=== PATIENT | female | born 1990 | race Caucasian/White ===

== ENCOUNTER → 2020-08-08 10:27 | Outpatient (CLI) | payer OTHER, MEDICAID, SELFPAY ==
[2020-08-08 11:15] LABS: Add Manual Diff / Slide Review NO; Basophils Absolute Auto 0 /uL (0-100); Basophils Percent Auto 0.4 % (0-2); Eosinophils Absolute Auto 200 /uL (0-450); Eosinophils Percent Auto 1.8 % (2-4); Hemoglobin 12.5 g/dL (12.0-16.0); Lymphocytes Absolute Auto 2500 /uL (1100-4500); Lymphocytes Percent Auto 22.9 % (25-40); Mean Corpuscular HGB Conc 33.8 % (30-36); Mean Corpuscular Hemoglobin 28.8 PG (26-34); Mean Corpuscular Volume 85.2 fL (80-100); Monocytes Absolute Auto 500 /uL (0-900); Monocytes Percent Auto 4.2 % (3-14); Neutrophils Absolute Auto 7800 /uL (1500-7000); Neutrophils Percent Auto 70.7 % (50-75); Platelet Count 266 X10^3/uL (150-400); Red Blood Cell Count 4.35 X10^6/uL (4.0-5.2); Red Cell Distribution Width 13.7 % (11.6-14.8)
[2020-08-08 11:23] LABS: Hemoglobin A1C% w Est Avg Glu 5.3 % (4.0-6.0)
[2020-08-08 11:50] LABS: Glucose 92 mg/dL (70-100)
[2020-08-09 10:03] LABS: RPR Screen Non Reactive (Non Reactive)
[2020-08-09 11:14] LABS: Varicella IgG Antibody 2501 index (Immune >165)
[2020-08-09 19:37] LABS: Hepatitis B Surface Antigen NEGATIVE s/c (NEGATIVE); Rubella Antibody IgG 41.4 IU/mL (>15)
[2020-08-09 19:57] LABS: Hep C Virus Ab w/Reflex Quant NEGATIVE s/c (NEGATIVE)
[2020-08-10 16:59] LABS: HIV 1 & 2 Ab/Ag 4th Gen Combo NEGATIVE (NEGATIVE)
== END ==
PROVIDERS: PCP Specialist; Referring Provider Specialist; Visit Provider Specialist
DX: Z34.81 Encounter for supervision of other normal pregnancy, first trimester (principal)
CPT/HCPCS: 36415; 80055; 82947; 83036; 86787; 86803; 86850; 86900; 86901; 87389

== ENCOUNTER → 2020-11-12 12:35 | Outpatient (CLI) | payer OTHER, MEDICAID, SELFPAY ==
--- NOTE | 2020-11-12 12:36 | DI.US.S_ITS ---
PROCEDURE: US OB >= 14 WEEKS FETUS INDICATIONS: 20 week anatomy scan OUTSIDE/PRIOR DATING DATA: Last menstrual period (LMP): 06/11/2020. LMP-based estimated date of delivery (LISSETTE): 03/18/2021 . First dating scan (date and location): 08/08/2020 . Estimated date of delivery (LISSETTE) from first dating scan: 03/20/2021 . TECHNIQUE: Real-time scanning was performed of the fetus, with image documentation and biometric measurements. Endovaginal scanning: No COMPARISON: [facility], , OB <= 14 WEEKS FETUS, 08/08/2020, 10:04. FINDINGS: General: A single living intrauterine gestation is present. Presentation: Variable. Placenta: Placental position is anterior , without previa. Amniotic fluid index: 11.0 cm, normal range is 5-24 cm. heart rate: 139 beats per minute. Maternal cervical canal: 3.0 cm long. Normal lower limit is 2.5 cm. biometrics: Biparietal diameter: 22 weeks 5 days Head circumference: 22 weeks 1 day Abdominal circumference: 23 weeks Femur length: 23 weeks 2 days Estimated gestational age from initial scan: 21 weeks 5 days Composite gestational age from present scan: 22 weeks 6 days Estimated weight and percentile: 555 g; 96 percentile Measurement variability for biometric dating: +/- 7 days from 14 weeks to 15 weeks 6 days gestation, +/- 10 days from 16 weeks to 21 weeks 6 days gestation, +/- 2 weeks from 22 weeks to 27 weeks 6 days gestation, +/- 3 weeks for 28 weeks gestation or later. weight reference: 4500 g or EFW >90/95% is considered macrosomia or large for gestational age. EFW <10% is small for gestational age. EFW 5% or less is considered intra-uterine growth restriction. Anatomic survey: Neuro: Ventricles are non-dilated at less than 10 mm. Cisterna magna is normal at 3-11 mm. Cerebellum is normal in size and morphology. Nuchal skin fold: Normal at less than 6 mm between 14-21 weeks gestational age. Face: Nose and lips, facial profile are normal. Spine: Suboptimally visualized. Heart: 4-chambered heart is present, with normal ventricular outflow tracts. Diaphragm: Diaphragm is intact. Stomach: Left-sided stomach is present. Kidneys: No hydronephrosis. Normal is less than 5 mm in 2nd trimester, less than 7 mm in 3rd trimester. Cord: 3-vessel cord has orthotopic insertion. Bladder: Normal in size. Extremities: All 4 extremities identified. IMPRESSION: 1. Single living IUP redemonstrated and interval growth is greater than expected with estimated weight 96 percentile. Follow-up growth recommended to exclude early developing macrosomia. 2. Spine suboptimally visualized; otherwise anatomic survey is normal. Follow-up recommended. Dictated by: Evan Cook [facility] Interpreted: Charly Francis MD on 11/12/2020 at 14:36 Approved by: Charly Francis M.D. on 11/13/2020 at 8:03
== END ==
PROVIDERS: PCP Specialist; Referring Provider Specialist; Visit Provider Specialist
DX: Z34.82 Encounter for supervision of other normal pregnancy, second trimester (principal); Z3A.22 22 weeks gestation of pregnancy
CPT/HCPCS: 76811

== ENCOUNTER → 2020-11-29 10:30 | Outpatient (CLI) | payer OTHER, MEDICAID, SELFPAY ==
--- NOTE | 2020-11-29 | DI.US.S_ITS ---
PROCEDURE: US OB FOLLOW UP INDICATIONS: FOLLOW UP GROWTH/SPINE OUTSIDE/PRIOR DATING DATA: Last menstrual period (LMP): 06/11/20. LMP-based estimated date of delivery (LISSETTE): 03/18/21 . First dating scan (date and location): 08/08/20 . Estimated date of delivery (LISSETTE) from first dating scan: 03/20/21 . TECHNIQUE: Real-time scanning was performed of the fetus, with image documentation. Endovaginal scanning: Not performed COMPARISON: [facility], OB >= 14 WEEKS FETUS, 11/12/2020, 12:46. [facility], OB <= 14 WEEKS FETUS, 08/08/2020, 10:04. FINDINGS: A single living intrauterine gestation is present. Presentation: Transverse. Placenta: Placental position is anterior , without previa. Amniotic fluid index: 14.7 cm, normal range is 5-24 cm. heart rate: 145 beats per minute. Maternal cervical canal: 3.9 cm long. Normal lower limit is 2.5 cm. Biparietal diameter 6.2 cm, 25 weeks 1 day Head circumference 27.2 cm, 24 weeks 6 days Abdominal circumference 20.9 cm, 25 weeks 3 days Femur length 4.9 cm, 26 weeks 3 days Estimated gestational age by initial ultrasound: 24 weeks 2 days Composite gestational age by today's ultrasound measurements: 25 weeks 3 days Estimated weight 847 g, 95th percentile (previously 96th percentile) IMPRESSION: Single living intrauterine fetus in transverse presentation. Estimated weight 847 g, 95th percentile (previously 96th percentile) as above. Dictated by: Sean Ramos M.D. on 11/30/2020 at 12:37 Approved by: Sean Ramos M.D. on 11/30/2020 at 12:43
== END ==
PROVIDERS: PCP Specialist; Referring Provider Specialist; Visit Provider Specialist
DX: Z36.2 Encounter for other antenatal screening follow-up (principal); Z3A.25 25 weeks gestation of pregnancy
CPT/HCPCS: 76816

== ENCOUNTER → 2021-01-03 10:46 | Outpatient (CLI) | payer OTHER, MEDICAID, SELFPAY ==
[2021-01-03 12:33] LABS: Hematocrit 35.6 % (36-46); Hemoglobin 11.8 g/dL (12.0-16.0)
[2021-01-03 12:34] LABS: Appearance Urine UA SL CLOUDY; Bilirubin Urine UA NEGATIVE (NEGATIVE); Color Urine UA YELLOW; Glucose Urine UA NEGATIVE (Negative); Ketones Urine UA 1+ (NEGATIVE); Leukocyte Esterase Urine UA TRACE (NEGATIVE); Nitrite Urine UA NEGATIVE (Negative); Occult Blood Urine UA TRACE-LYSED (Negative); Protein Urine UA TRACE (Negative); Urobilinogen Urine UA 0.2 E.U./dL (0.2)
[2021-01-03 12:44] LABS: Amorphous Sediment Urine 1+; Bacteria Urine Many (>30); Mucus Urine 2+ (Negative); RBC Urine 1-5/HPF (0-5/HPF); Squamous Epithelial Cell Urine 5-10 /HPF (0-5/HPF); WBC Urine 5-10/HPF (0-5/HPF)
[2021-01-03 13:16] LABS: GTT (PREG) 1 Hour PP 50gm Dose 147 mg/dL (76-139)
== END ==
PROVIDERS: PCP Specialist; Referring Provider Specialist; Visit Provider Specialist
DX: Z34.82 Encounter for supervision of other normal pregnancy, second trimester (principal)
CPT/HCPCS: 36415; 81003; 81015; 82950; 85014; 85018; 87086

== ENCOUNTER → 2021-02-19 14:37 | Outpatient (CLI) | payer OTHER, MEDICAID, SELFPAY ==
[2021-02-22 11:34] LABS: Strep Grp B PCR NEG for Grp B Strep
== END ==
PROVIDERS: PCP Specialist; Visit Provider Specialist
DX: Z34.83 Encounter for supervision of other normal pregnancy, third trimester (principal); Z3A.36 36 weeks gestation of pregnancy
CPT/HCPCS: 87653

== ENCOUNTER → 2021-03-01 13:31 | Outpatient (CLI) | payer OTHER, MEDICAID, SELFPAY ==
[2021-03-01 15:32] LABS: Add Manual Diff / Slide Review NO; Basophils Absolute Auto 100 /uL (0-100); Basophils Percent Auto 0.8 % (0-2); Eosinophils Absolute Auto 200 /uL (0-450); Eosinophils Percent Auto 1.4 % (2-4); Hematocrit 36.5 % (36-46); Hemoglobin 12.3 g/dL (12.0-16.0); Lymphocytes Absolute Auto 2500 /uL (1100-4500); Lymphocytes Percent Auto 23.1 % (25-40); Mean Corpuscular HGB Conc 33.6 % (30-36); Mean Corpuscular Hemoglobin 28.5 PG (26-34); Mean Corpuscular Volume 84.7 fL (80-100); Monocytes Absolute Auto 300 /uL (0-900); Monocytes Percent Auto 2.5 % (3-14); Neutrophils Absolute Auto 7900 /uL (1500-7000); Neutrophils Percent Auto 72.2 % (50-75); Platelet Count 180 X10^3/uL (150-400); Red Blood Cell Count 4.31 X10^6/uL (4.0-5.2); Red Cell Distribution Width 15.1 % (11.6-14.8); White Blood Cell Count 10.9 X10^3/uL (4.5-11.0)
[2021-03-01 15:35] LABS: Hemoglobin A1C% w Est Avg Glu 5.1 % (4.0-6.0)
[2021-03-01 15:43] LABS: Alanine Aminotransferase 18 IU/L (<35); Aspartate Aminotransferase 23 IU/L (14-36); Blood Urea Nitrogen 9 mg/dL (7-17); Estimated Glomerular Filt Rate > 60.0 mL/min (>60); Glucose 128 mg/dL (70-100); Uric Acid 3.3 mg/dL (2.5-6.2)
== END ==
PROVIDERS: PCP Specialist; Referring Provider Specialist; Visit Provider Specialist
DX: O16.3 Unspecified maternal hypertension, third trimester (principal); R73.09 Other abnormal glucose
CPT/HCPCS: 36415; 82565; 82947; 83036; 84450; 84460; 84520; 84550; 85025

== ENCOUNTER 2021-03-14 05:59 | Inpatient (IN) | payer OTHER, MEDICAID, SELFPAY ==
[2021-03-14 06:54] LABS: Basophils Absolute Auto 100 /uL (0-100); Basophils Percent Auto 1.2 % (0-2); Eosinophils Absolute Auto 400 /uL (0-450); Eosinophils Percent Auto 3.7 % (2-4); Hematocrit 36.9 % (36-46); Hemoglobin 12.7 g/dL (12.0-16.0); Lymphocytes Absolute Auto 3300 /uL (1100-4500); Lymphocytes Percent Auto 28.3 % (25-40); Mean Corpuscular HGB Conc 34.5 % (30-36); Mean Corpuscular Hemoglobin 29.3 PG (26-34); Mean Corpuscular Volume 84.9 fL (80-100); Monocytes Absolute Auto 600 /uL (0-900); Monocytes Percent Auto 5.3 % (3-14); Neutrophils Absolute Auto 7300 /uL (1500-7000); Neutrophils Percent Auto 61.5 % (50-75); Red Blood Cell Count 4.34 X10^6/uL (4.0-5.2); White Blood Cell Count 11.8 X10^3/uL (4.5-11.0)
[2021-03-14 06:55] LABS: COVID19 - ADMIT (NP swab/PCR) Negative (Negative)
[2021-03-14 06:56] LABS: Add Manual Diff / Slide Review SLIDE REVIEW
[2021-03-14] MEDS: LACTATED RINGERS 1,000 ML 100 ML IV ×2 (07:00→08:47)
--- NOTE | 2021-03-14 07:09 | SUR.OPER ---
Supine on Padded OR bed, head on pillow, safety belt at thigh, arms secured on padded arm boards at <90 degrees abduction. Bump under right buttock. Legs uncrossed with pillow under knees, gel pad to heels, tape over blanket to lower legs.
--- NOTE | 2021-03-14 07:21 | P.HPOB_ITS ---
OB HPI Date/Time Date of admission: 03/14/21 Date Patient Seen: 03/14/21 Time Patient Seen: 07:21 History of Present Condition Chief complaint: REPEAT : 2 Para: 1 Estimated Date of Delivery: 03/18/21 Estimated Gestational Age (weeks): 39 Narrative: Lesa Quintero is a 30 year old female admitted for repeat low-transverse section Indications Operative indications ( section): previous uterine surgery (Prior neha arean section) History of Present care: initiated at week # (8), number of visits (9) and pounds weight gain (10) Dating criteria: LMP confirmed by 1st trimester US Ultrasounds: normal mid trimester US Obstetrical complications: gestational diabetes (Elevated 1 hour glucose patient never did 3 hour glucose tolerance test, HgA1C 5.4 37 week) Medical complications: cardiovascular (Hypertension possibly white coat) Preadmission Labs Blood type: O (+) positive -: Antibody screen: negative, GBS status: negative, HBsAG: negative, HIV: negative and RPR/VDLR: negative -: Chlamydia screen: not detected and Gonorrhea screen: not detected -: Rubella: immune and Varicella: immune HCAB: negative Quad screen: Normal 1 hr GTT: 147 Narrative: Patient never did 3 hour glucose tolerance test. Random glucoses less than 130. Hemoglobin A1c 5.4 at 37 week Prior (ies) History: 03/12/2017 section for failure to progress 39 weeks female weighing 8# Evaluation Evaluation Baseline heart rate: 140 Variability: Moderate (11-25) monitor accelerations: Present Monitor Decelerations: Absent Contraction Frequency (minutes): 0 Category of Tracing: Reactive Status: Category l Laboratory results: Laboratory Tests 03/14/21 03/14/21 06:15 06:15 WBC 11.8 H RBC 4.34 Hgb 12.7 Hct 36.9 MCV 84.9 MCH 29.3 MCHC 34.5 RDW 15.0 H Plt Count 175 Neut % (Auto) 61.5 Lymph % (Auto) 28.3 [place] % (Auto) 5.3 Eos % (Auto) 3.7 Baso % (Auto) 1.2 Neut # (Auto) 7300 H Lymph # (Auto) 3300 [place] # (Auto) 600 Eos # (Auto) 400 Baso # (Auto) 100 SARS-CoV-2 (PCR) Negative PFSH Medical History (Updated 03/05/21 @ 13:29 by Marry Reilly MD) Anxiety and depression Elevated blood pressure reading in office with white coat syndrome, with diagnosis of hypertension Gestational diabetes (~2016) PTSD (post-traumatic stress disorder) Surgical History (Updated 07/31/20 @ 10:51 by Maia Jean, STEPHANIE) H/O oral surgery (~2014) Status post primary low transverse section (~02/2017) Family History (Updated 07/31/20 @ 10:50 by Maia Jean, STEPHANIE) Mother Diabetes mellitus Depression Anxiety Father Mental health disorder Suicide Grandmother Cancer Grandfather Old age Grandmother Cancer Lung cancer Smoker Grandfather Diabetes mellitus Sister Depression Anxiety Social History marital status: number of children: 1 household members: spouse, children and other (Family compound with Sister on the same property) lives independently: Yes pets and animals: Yes (X 4 dogs and X 1 cat indoor plus 20 turkey's on the farm : aware) occupational status: unemployed current occupational exposures/hazards: No special silvina needs: No Smoking Status: Never smoker second hand exposure: No alcohol intake: former (pre- : rare use) substance use type: marijuana (smoking less now and aware it is not good : uses to manage nausea and vomiting) Meds Home Medications and Allergies Home Medications Medication Instructions Recorded Confirmed Type prenat.vits,quan,jsr-qopl-iadlf 1 tab PO DAILY 07/31/20 02/20/21 History sertraline 50 mg tablet 50 mg PO DAILY #30 tab 12/21/20 02/20/21 Rx labetalol 100 mg tablet 100 mg PO BID #30 tab 03/05/21 03/05/21 Rx Allergies Allergy/AdvReac Type Severity Reaction Status Date / Time No Known Drug Allergies Allergy Unknown Unverified 02/20/21 14:02 [NO KNOWN DRUG ALLERGIES] Review of Systems Review of Systems Narrative: No headaches, scotomata, epigastric pain. Good movement. No leakage of fluid. No contractions. ROS: Yes All systems reviewed with the patient and are negative except as ot herwise documented Exam Vital Signs (past 8 hours): Blood pressure 172/88, pulse 68, temperature 96.9? Narrative Exam Narrative: HEENT exam within normal limits. Lungs are clear to auscultation percussion. Heart is regular rate and rhythm no S3-S4 or murmurs. Abdomen is gravid. Fetus is vertex. Extremities without edema and nontender. Objective Labs Result Diagrams: 03/14/21 06:15 Labs: Laboratory Results - last 24 hr 03/14/21 03/14/21 06:15 06:15 WBC 11.8 H RBC 4.34 Hgb 12.7 Hct 36.9 MCV 84.9 MCH 29.3 MCHC 34.5 RDW 15.0 H Plt Count 175 Neut % (Auto) 61.5 Lymph % (Auto) 28.3 [place] % (Auto) 5.3 Eos % (Auto) 3.7 Baso % (Auto) 1.2 Neut # (Auto) 7300 H Lymph # (Auto) 3300 [place] # (Auto) 600 Eos # (Auto) 400 Baso # (Auto) 100 SARS-CoV-2 (PCR) Negative Assessment and Plan Assessment and Plan Assessment and Plan narrative: 39 week gestation with prior section for repeat low-transverse section
--- NOTE | 2021-03-14 07:21 | PM.PREOP ---
Pre-operative Note COVID-19 COVID-19 status: Negative Result date/Date tested (Pos, Neg/Pending): 03/14/21 Interval Note History & Physical reviewed/Exam performed by Physician: Yes Changes to H&P: No
[2021-03-14] MEDS: CITRIC ACID/SODIUM CITRATE 15 ML SOLUTION 30 ML PO (07:30)
[2021-03-14 07:43] LABS: Platelet Count 175 X10^3/uL (150-400)
[2021-03-14] MEDS: CEFAZOLIN 1 GM VIAL 2 GM IV (08:10)
--- NOTE | 2021-03-14 08:29 | SUR.OPER ---
Viable male delivered at 08:20. Cord blood vials x2 and placenta sent with L&D RN.
[2021-03-14 09:09] VITALS: BP 169/78; PULSE 66; RESP 16; TEMP 36; O2SAT 97
[2021-03-14 09:14] VITALS: BP 182/84; PULSE 64; RESP 14; O2SAT 100
--- NOTE | 2021-03-14 09:17 | P.OP_ITS ---
Operative Date/Time/Diagnoses Date of procedure: 03/14/21 Time of procedure: 09:17 Pre-op diagnosis: 39 week gestation with prior section Post-op diagnosis: same Procedure & Clinicians Procedure: Repeat low-transverse section Same procedure as scheduled: Yes Indications: 39 week gestation with prior section Surgeon: Jackie Kaplan Silviculturist: Marry Reilly Reason for Silviculturist: Assist in retraction, left side of incisions, fundal pressure deliver the baby Anesthesia Type: Spinal Operative Notes Findings: Normal tubes, ovaries, uterus. Viable male infant weighing 7 lb 6 oz with Apgars of 8 and 9 Closure Type: primary Specimen(s): cord blood Intraoperative meds administered: Duramorph, Ketorolac and Pitocin Applied: Catheter (Dey) Estimated Blood Loss (mL): 500 Blood products transfused: none Procedure in detail: The patient was brought to the operating room where she underwent a spinal for anesthesia. She was placed in a supine position with a left lateral tilt. A Dey catheter was place. Pulsatile stockings were placed and functional throughout the case. 2 g of Ancef were given IV prior to the incision. Warming was in place. The patient was prepped and draped in usual sterile fashion. A low transverse incision was made with a scalpel and the incision was carried down to the fascial layer which was incised transversely with scissors. The certified teacher assistant did her side of the incision. The midline attachments are superiorly and inferiorly. Some bleeding was controlled Bovie. The rectus muscles were in the midline and the peritoneal incision was made with no damage to internal structures. The peritoneum was incised and superiorly and inferiorly. The incision was stretched with the surgeon and certified teacher assistant placing traction. Bladder blade was placed and a bladder flap was developed and the bladder held away from the lower uterine segment. An incision was made in the uterus with the scalpel and the incision was extended with stretching. The head was elevated out of the abdomen and with fundal pressure by the certified teacher assistant the baby was delivered. The was bulb suctioned for light meconium-stained fluid and handed off to the warmer. Cord blood was collected. The placenta delivered spontaneously with traction. The uterus was cleaned with clean laps. The uterine incision was closed in 2 layers of 0 chromic suture the first a running locking layer the second an imbricating layer. The certified teacher assistant was helping to expose the incision. The bladder peritoneum was repaired with 2-0 Vicryl suture. The gutters were cleaned of any remaining fluids and ovaries and tubes were observed to be normal. Adequate hemostasis was noted. The perineum was closed with 2-0 Vicryl suture. The fascia layer was closed with 0 Vicryl suture with 2 stitches. The certified teacher assistant repairing half the incision with helping to retract and expose the incision for the other half. The incision was irrigated and adequate hemostasis noted. The incision was closed with interrupted 3-0 Vicryl sutures and then a subcuticular stitch of 4-0 Vicryl suture. Steri-Strips were placed. The uterus was massaged to remove any clots. The patient went to recovery room in good condition. Counts of instruments and sponges were correct. Dr. Reilly was present throughout the case to assist with retraction, fundal pressure to deliver the , and suturing half the fascia. Complications: none Post-operative Condition: stable Disposition: other ( Center) Aftercare: routine postop
[2021-03-14 09:19] VITALS: BP 179/85; PULSE 62; RESP 12; TEMP 36.2; O2SAT 97
[2021-03-14 09:24] VITALS: BP 176/78; PULSE 65; RESP 16; TEMP 36.1; O2SAT 98
[2021-03-14 10:12] VITALS: BP 101/62; PULSE 71; RESP 16; TEMP 36.1
[2021-03-14] MEDS: KETOROLAC 30 MG/ML VIAL IV ×2 (15:50→22:06)
[2021-03-14] MEDS: OXYCODONE IR 5 MG TABLET PO ×2 (15:51→21:20)
[2021-03-15] MEDS: OXYCODONE IR 5 MG TABLET PO ×4 (01:20→15:00)
[2021-03-15] MEDS: KETOROLAC 30 MG/ML VIAL IV (04:03)
[2021-03-15 06:30] LABS: Add Manual Diff / Slide Review NO; Basophils Absolute Auto 100 /uL (0-100); Basophils Percent Auto 0.6 % (0-2); Eosinophils Absolute Auto 100 /uL (0-450); Eosinophils Percent Auto 1.1 % (2-4); Hematocrit 32.7 % (36-46); Lymphocytes Absolute Auto 2400 /uL (1100-4500); Lymphocytes Percent Auto 19.3 % (25-40); Mean Corpuscular HGB Conc 33.6 % (30-36); Mean Corpuscular Hemoglobin 28.5 PG (26-34); Mean Corpuscular Volume 84.9 fL (80-100); Monocytes Absolute Auto 600 /uL (0-900); Monocytes Percent Auto 4.6 % (3-14); Neutrophils Absolute Auto 9300 /uL (1500-7000); Neutrophils Percent Auto 74.4 % (50-75); Platelet Count 145 X10^3/uL (150-400); Red Blood Cell Count 3.85 X10^6/uL (4.0-5.2); Red Cell Distribution Width 15.3 % (11.6-14.8); White Blood Cell Count 12.6 X10^3/uL (4.5-11.0)
[2021-03-15] MEDS: SERTRALINE 50 MG TABLET PO (08:50)
[2021-03-15] MEDS: DOCUSATE 250 MG CAPSULE PO (08:50)
[2021-03-15] MEDS: IBUPROFEN 600 MG TABLET PO (10:59)
--- NOTE | 2021-03-15 11:49 | PM.OBDS.1 ---
Discharge Providers Provider Date of admission: 03/14/21 05:59 Discharge Date: 03/15/21 Primary care physician: Radha Vazquez MD Consults: 03/14/21 10:12 Consult to Bakery Machine Mechanic Routine Comment: Discharge provider: Jackie Kaplan MD Summary Hospital Course Date Patient Seen: 03/15/21 Time Patient Seen: 10:30 Diagnoses: Prior section, gestational hypertension complicating chronic hypertension, anxiety and depression Hospital Course: Patient underwent a repeat low-transverse section at 39 weeks. Patient has no headaches, scotomata, epigastric pain. She will be restarted on her labetalol for her hypertension. She will continue on sertraline for her anxiety and depression. Precautions reviewed with the patient. Patient is ambulatory. Urinating well. Passing gas. Peripartum Data Delivery Method: Section (Repeat) Procedures: Repeat low-transverse section complications: none 1: Gender: Male Disposition of : home Discharge Diagnosis (1) Status post repeat low transverse section: Status: Acute (2) Gestational hypertension: Status: Acute (3) Anxiety and depression: Status: Acute Problem Details: Since childhood due to witnessing trauma : tried therapy and meds when younger and was traumatic in and of itself Status at Discharge Cognitive/behavioral status at discharge: oriented Functional status at discharge: independent ambulation Overall status at discharge: patient is progressing back to baseline Time Spent with Patient Time attestation: Total time spent providing and/or coordinating discharge services: Objective Labs Result Diagrams: 03/15/21 06:19 Labs: Laboratory Results - last 24 hr 03/15/21 06:19 WBC 12.6 H RBC 3.85 L Hgb 11.0 L Hct 32.7 L MCV 84.9 MCH 28.5 MCHC 33.6 RDW 15.3 H Plt Count 145 L Neut % (Auto) 74.4 Lymph % (Auto) 19.3 L [place] % (Auto) 4.6 Eos % (Auto) 1.1 L Baso % (Auto) 0.6 Neut # (Auto) 9300 H Lymph # (Auto) 2400 [place] # (Auto) 600 Eos # (Auto) 100 Baso # (Auto) 100 Exam Vital Signs (past 8 hours): Blood pressure 155/88, pulse 71, temperature 98.1? Oxygen Delivery Method Room Air Oxygen Flow Rate 0 Narrative Exam Narrative: Abdomen is soft, nontender. Uterus is firm, at U, minimally tender. Dressing is clean, dry, intact. Extremities without edema and nontender. Mild lochia. Blood type is Rh positive, rubella immune, she received Tdap in the 3rd trimester. Discharge Plan Discharge Plan Patient Disposition: Home Discharge orders & Medications Prescriptions: New ibuprofen 600 mg Tablet 600 mg PO Q6H PRN (Reason: Fever/Mild Pain (1-3)) Qty: 30 RF: 0 oxycodone 5 mg Tablet 5 mg PO Q4H PRN (Reason: Pain, Moderate (4-6)) Qty: 30 RF: 0 Continued sertraline 50 mg tablet 50 mg PO DAILY Qty: 30 RF: 5 labetalol 100 mg tablet 100 mg PO BID Qty: 30 RF: 2 prenat.vits,quan,xpy-dqip-nsidm Tablet 1 tab PO DAILY RF: 0 Follow up/Referrals: Jackie Kaplan MD [Physician] - 04/17/21 2:00 pm ([facility]) Radha Vazquez MD [Primary Care Provider] - Diet/Activity/Treatments Diet: Regular Activity: Nothing in vagina or lifting over 20 lb for 6 weeks Skin/Wound/Dressing Care Report to your healthcare provider any signs of infection, such as:: chills, fever, increased pain and unusual redness Dressing: Patient's will remove dressing in 1 week Discharge Data Primary Care Provider: Radha Vazquez
[2021-03-15 14:21] VITALS: BP 144/90; PULSE 76; RESP 16; TEMP 36.6
[2021-03-15] MEDS: ACETAMINOPHEN 325 MG TABLET 650 MG PO (15:00)
== END 2021-03-15 15:05 | disposition home or self-care (01) | DRG 540 ==
PROVIDERS: Admitting Provider Specialist; PCP Specialist; Referring Provider Specialist; Visit Provider Specialist
PROC: 10D00Z1 Extraction of Products of Conception, Low, Open Approach (ICD-10-PCS; CPT 59514; principal; 2021-03-14 07:45)
DX: O34.219 Maternal care for unspecified type scar from previous cesarean delivery (principal); Z3A.39 39 weeks gestation of pregnancy; Z37.0 Single live birth; O13.4 Gestational [pregnancy-induced] hypertension without significant proteinuria, complicating childbirth; O99.344 Other mental disorders complicating childbirth; F41.8 Other specified anxiety disorders; F43.10 Post-traumatic stress disorder, unspecified; Z20.822 Contact with and (suspected) exposure to COVID-19
CPT/HCPCS: 36415; 59050; 59514; 85025; 86850; 86900; 86901; 87635; C9803; J0690; J1885; J2274; J2405; J2590

== ENCOUNTER → 2024-11-15 09:50 | Outpatient (CLI) | payer OTHER, SELFPAY ==
[2024-11-15 10:23] LABS: Add Manual Diff / Slide Review NO; Basophils Absolute Auto 100 /uL (0-100); Basophils Percent Auto 0.5 % (0-2); Eosinophils Absolute Auto 200 /uL (0-450); Eosinophils Percent Auto 1.6 % (2-4); Hematocrit 38.5 % (36-46); Hemoglobin 13.1 g/dL (12.0-16.0); Lymphocytes Absolute Auto 2100 /uL (1100-4500); Lymphocytes Percent Auto 19.3 % (25-40); Mean Corpuscular HGB Conc 33.9 % (30-36); Mean Corpuscular Hemoglobin 28.1 PG (26-34); Monocytes Absolute Auto 400 /uL (0-900); Monocytes Percent Auto 3.9 % (3-14); Neutrophils Absolute Auto 7900 /uL (1500-7000); Neutrophils Percent Auto 74.7 % (50-75); Platelet Count 285 X10^3/uL (150-400); Red Blood Cell Count 4.64 X10^6/uL (4.0-5.2); Red Cell Distribution Width 13.9 % (11.6-14.8); White Blood Cell Count 10.6 X10^3/uL (4.5-11.0)
[2024-11-15 10:39] LABS: Hemoglobin A1C% w Est Avg Glu 5.1 % (4.0-6.0)
[2024-11-15 10:41] LABS: Alanine Aminotransferase 24 IU/L (<35); Aspartate Aminotransferase 23 IU/L (14-36); Blood Urea Nitrogen 10 mg/dL (7-17); Estimated Glomerular Filt Rate > 60 mL/min (>60); Uric Acid 3.7 mg/dL (2.5-6.2)
[2024-11-15 11:15] LABS: Hepatitis B Surface Antigen NEGATIVE s/c (NEGATIVE)
[2024-11-15 11:16] LABS: Rubella Antibody IgG 45.3 IU/mL (>15)
[2024-11-15 11:37] LABS: HIV 1 & 2 Ab/Ag 4th Gen Combo NEGATIVE (NEGATIVE); Hep C Virus Ab w/Reflex Quant NEGATIVE s/c (NEGATIVE)
[2024-11-16 04:08] LABS: RPR Screen Non Reactive (Non Reactive)
[2024-11-16 05:41] LABS: Varicella IgG Antibody Reactive (Non Reactive)
== END ==
PROVIDERS: PCP Specialist; Referring Provider Student in an Organized Health Care Education/Training Program; Visit Provider Student in an Organized Health Care Education/Training Program
DX: O09.299 Supervision of pregnancy with other poor reproductive or obstetric history, unspecified trimester (principal); Z86.32 Personal history of gestational diabetes; Z87.59 Personal history of other complications of pregnancy, childbirth and the puerperium
CPT/HCPCS: 36415; 80055; 82565; 83036; 84450; 84460; 84520; 84550; 86787; 86803; 86850; 86900; 86901; 87389

== ENCOUNTER → 2024-12-19 11:08 | Outpatient (CLI) | payer OTHER, SELFPAY ==
[2024-12-19 14:49] LABS: Urine N gonorrhoeae NOT DETECTED
[2024-12-19 15:23] LABS: Urine Chlamydia NOT DETECTED
== END ==
PROVIDERS: PCP Specialist; Visit Provider Student in an Organized Health Care Education/Training Program
DX: O09.299 Supervision of pregnancy with other poor reproductive or obstetric history, unspecified trimester (principal); Z86.32 Personal history of gestational diabetes; Z87.59 Personal history of other complications of pregnancy, childbirth and the puerperium; Z11.3 Encounter for screening for infections with a predominantly sexual mode of transmission
CPT/HCPCS: 87086; 87491; 87591

== ENCOUNTER → 2024-12-19 11:45 | Outpatient (CLI) | payer OTHER, SELFPAY ==
[2024-12-19 13:21] LABS: Natera Collection Specimen Collected
== END ==
PROVIDERS: PCP Specialist; Referring Provider Student in an Organized Health Care Education/Training Program; Visit Provider Student in an Organized Health Care Education/Training Program
DX: O09.291 Supervision of pregnancy with other poor reproductive or obstetric history, first trimester (principal); Z86.32 Personal history of gestational diabetes; Z87.59 Personal history of other complications of pregnancy, childbirth and the puerperium; Z11.3 Encounter for screening for infections with a predominantly sexual mode of transmission; Z3A.11 11 weeks gestation of pregnancy
CPT/HCPCS: 36415; 87086; 87491; 87591

== ENCOUNTER → 2025-01-25 14:00 | Outpatient (CLI) | payer OTHER, SELFPAY ==
--- NOTE | 2025-01-25 14:01 | DI.ECHO.S_ITS ---
[facility] : : [address] : : [place] : : [id number] : : Phone: [phone] Echocardiogram Report + + :Name: SUSANNE TURNER Study Date: 01/25/2025 Height: 65 in : :[facility] ReadingLocation: Weight: 203 lb : : Gender: Female BSA: 2.0 m2 : :: 1990 Age: 34 yrs BP: 133/91 mmHg: :Reason For Study: SHORTNESS OF BREATH, : :Ordering Physician: RIMMA BROOKS : :A Performed By: Lewis Montes : :Referring: UNSPECIFIED : + + Interpretation Summary PT is 17 weeks The left ventricle is normal in size. The left ventricular ejection fraction is normal. The ejection fraction is estimated to be 60-65%. Diastolic parameters suggest probable normal left ventricular diastolic function and normal filling pressures. The right ventricle is normal in size and function. There is trace tricuspid regurgitation. Right ventricular systolic pressure is estimated to be 39.7 mmHg plus the clinically estimated CVP which cannot be estimated on this exam. At least mild pulmonary hypertension. BP: 133/91 mmHg Procedure: A two-dimensional transthoracic echocardiogram with color flow and Doppler was performed. The study quality was technically good. There is no prior echocardiogram noted for this patient. The patient was in normal sinus rhythm during the exam. Left Ventricle: The left ventricle is normal in size. There is normal left ventricular wall thickness. There is no thrombus. The ejection fraction is estimated to be 60-65%. The left ventricular ejection fraction is normal. There are no obvious focal wall motion abnormalities noted but poor endocardial definition reduces the sensitivity for the detection of such. Diastolic parameters suggest probable normal left ventricular diastolic function and normal filling pressures. Right Ventricle: The right ventricle is normal in size and function. Atria: The left atrial size is normal. Right atrial size is normal. There is no Doppler evidence for an atrial septal defect. Mitral Valve: The mitral valve leaflets appear normal. There is no evidence of stenosis, fluttering, or prolapse. There is no mitral regurgitation noted. Aortic Valve: The aortic valve is not well visualized. The aortic valve opens well. There is no aortic valve stenosis. No aortic regurgitation is present. Tricuspid Valve: The tricuspid valve leaflets are thin and pliable. There is trace tricuspid regurgitation. Right ventricular systolic pressure is estimated to be 39.7 mmHg plus the clinically estimated CVP which cannot be estimated on this exam. Pulmonic Valve: The pulmonic valve is not well visualized. There is no pulmonic valvular regurgitation. Great Vessels: The aortic root is normal size. The dimensions of the ascending aorta are normal. The pulmonary artery is normal size. The inferior vena cava was not visualized. Pericardium/ Pleura There is no pericardial effusion. There is no pleural effusion. MMode/2D Measurements & Calculations LVIDd: 5.5 cm LVOT diam: 2.0 cm LVIDs: 3.7 cm Ao root diam: 2.6 cm FS: 32.3 % EPSS: 0.88 cm IVSd: 0.64 cm LVPWd: 0.68 cm LV bran. diameter/BSA (cm/m^2): 2.7 LV sys. diameter/BSA (cm/m^2): 1.9 LA A2 area: 18.6 cm2 RA long axis: 4.3 cm LA A4 area: 19.4 cm2 RA area: 14.0 cm2 LA length (vol): 5.3 cm RA vol: 38.8 ml LA vol: 57.7 ml RA : 19.5 ml/m2 LA vol index: 29.0 ml/m2 RVD1 (basal): 3.2 cm RVD2 (mid): 2.5 cm TAPSE: 3.6 cm Doppler Measurements & Calculations Ao V2 max: 192.9 cm/sec LVOT Max Rob: 135.3 cm/sec Ao V2 mean: 137.2 cm/sec LV V1 max P.3 mmHg Ao max P.9 mmHg LV V1 VTI: 25.9 cm Ao mean P.4 mmHg MINDA(I,D): 2.0 cm2 Ao V2 VTI: 39.7 cm MINDA(V,D): 2.2 cm2 sev ratio: 0.65 MINDA indexed to BSA (cm^2/m^2): 1.0 MV E max rob: 119.4 cm/sec TR max rob: 315.2 cm/sec MV A max rob: 80.1 cm/sec TR max P.7 mmHg MV E/A: 1.5 PA V2 max: 126.7 cm/sec Med Peak E' Rob: 13.9 cm/sec PA V2 mean: 89.1 cm/sec E/E' med: 8.6 PA mean P.6 mmHg Lat Peak E' Rob: 21.9 cm/sec PA pr(Accel): 5.4 mmHg E/E' lat: 5.5 E/e' average: 7.0 MV dec time: 0.16 sec SVLVOT): 80.9 ml Reading Physician:03:36 PM
== END ==
PROVIDERS: PCP Specialist; Referring Provider Student in an Organized Health Care Education/Training Program; Visit Provider Student in an Organized Health Care Education/Training Program
DX: O99.891 Other specified diseases and conditions complicating pregnancy (principal); I27.20 Pulmonary hypertension, unspecified; R06.02 Shortness of breath; Z3A.17 17 weeks gestation of pregnancy
CPT/HCPCS: 93306

== ENCOUNTER → 2025-01-31 08:10 | Outpatient (CLI) | payer OTHER, SELFPAY ==
--- NOTE | 2025-01-31 08:10 | DI.US.S_ITS ---
PROCEDURE: US CAROTID DOPPLER BI INDICATIONS: PULSATILE TINNITUS RIGHT EAR. . TECHNIQUE: Color and pulse Doppler interrogation was performed of both carotid systems, with image documentation and velocity measurements. COMPARISON: None. FINDINGS: Stenosis calculations are based on SRU (Society of Radiologists in Ultrasound) criteria. Right side: Brachial blood pressure: 139/68 mm Hg. Common carotid artery peak systolic velocity: 177-257 cm/sec. Internal carotid artery peak systolic velocity: 154 cm/sec. Internal carotid artery end diastolic velocity: 37 cm/sec. External carotid artery peak systolic velocity: 146 cm/sec. ICA/CCA peak systolic ratio: 0.9 . Velasquez scale imaging description: No significant plaque Percent internal carotid artery stenosis: 50-69% based on velocity criteria . Vertebral artery: Flow direction is antegrade, maximum velocity of 108 centimeters/second. Left side: Brachial blood pressure: 126/70 mm Hg. Common carotid artery peak systolic velocity: 195-269 cm/sec. Internal carotid artery peak systolic velocity: 140 cm/sec. Internal carotid artery end diastolic velocity: 41 cm/sec. External carotid artery peak systolic velocity: 134 cm/sec. ICA/CCA peak systolic ratio: 0.6 . Velasquez scale imaging description: No significant plaque Percent internal carotid artery stenosis: 50-69% based on velocity criteria . Vertebral artery: Flow direction is antegrade, maximum velocity of 88 centimeters/second. IMPRESSION: 1. Elevated velocities within the bilateral internal carotid arteries without significant plaque. Based on velocity criteria, there is 50-69% stenosis, however this is likely artifactual given young age and no plaque or vessel narrowing seen on grayscale. Reason for increased velocities is unclear. 2. Increased velocities within the bilateral common carotid arteries measuring up to 257 centimeters/second on the right and 269 on the left. Again, no vascular plaque or narrowing is seen. 3. Antegrade vertebral arteries with mildly elevated velocities. 4. Incidental note of bilateral thyroid nodules. Recommend thyroid ultrasound for further evaluation. Dictated by: Cliff Castrejon M.D. on 01/31/2025 at 11:01 Approved by: Cliff Castrejon M.D. on 01/31/2025 at 11:06
== END ==
PROVIDERS: PCP Specialist; Referring Provider Student in an Organized Health Care Education/Training Program; Visit Provider Student in an Organized Health Care Education/Training Program
DX: R09.89 Other specified symptoms and signs involving the circulatory and respiratory systems (principal); E04.2 Nontoxic multinodular goiter
CPT/HCPCS: 93880

== ENCOUNTER → 2025-02-21 09:01 | Outpatient (CLI) | payer OTHER, SELFPAY ==
[2025-02-21 11:43] LABS: TSH w/ Reflex to FT4 < 0.02 uIU/mL (0.47-4.68)
[2025-02-21 12:10] LABS: Free T4, Direct Thyroxine 1.28 ng/dL (0.78-2.19)
== END ==
PROVIDERS: PCP Specialist; Referring Provider Student in an Organized Health Care Education/Training Program; Visit Provider Student in an Organized Health Care Education/Training Program
DX: E04.1 Nontoxic single thyroid nodule (principal)
CPT/HCPCS: 36415; 84439; 84443

== ENCOUNTER → 2025-03-06 07:03 | Outpatient (CLI) | payer OTHER, SELFPAY ==
--- NOTE | 2025-03-06 | DI.US.S_ITS ---
PROCEDURE: US OB >= 14 WEEKS FETUS INDICATIONS: ANATOMY OUTSIDE/PRIOR DATING DATA: First dating scan (date and location): 11/15/24, outside facility. Estimated date of delivery (LISSETTE) from first dating scan: 07/04/25. The calculations are made using the sonographic LISSETTE of 07/04/25. TECHNIQUE: Real-time scanning was performed of the fetus, with image documentation and biometric measurements. Endovaginal scanning: Not performed COMPARISON: [facility], OB >= 14 WEEKS FETUS, 11/12/2020, 12:46. FINDINGS: General: A single living intrauterine gestation is present. Presentation: Transverse. Placenta: Placental position is anterior , without previa. Amniotic fluid index: 12.9 cm, normal range is 5-24 cm. Single deepest vertical pocket is 4.3 cm. heart rate: 137 beats per minute. Maternal cervical canal: Closed and 3.7 cm long. Normal lower limit is 2.5 cm. biometrics: Biparietal diameter: 5.5 cm, 22 weeks five days Head circumference: 20.5 cm, 22 weeks four days Abdominal circumference: 19.1 cm, 23 weeks six days Femur length: 3.9 cm, 22 weeks three days Clinically estimated gestational age: 22 weeks six days Composite gestational age from present scan: 22 weeks six days Estimated weight and percentile: 565 g, 56 percentile Anatomic survey: Neuro: Ventricles are non-dilated at less than 10 mm. Cisterna magna is normal at 3-11 mm. Cerebellum is normal in size and morphology. Nuchal skin fold: Normal at less than 6 mm between 14-21 weeks gestational age. Face: Nose and lips, facial profile are normal. Spine: No evidence for spina bifida. Heart: 4-chambered heart is present, with normal ventricular outflow tracts. Diaphragm: Diaphragm is intact. Stomach: Left-sided stomach is present. Kidneys: No hydronephrosis. Normal is less than 5 mm in 2nd trimester, less than 7 mm in 3rd trimester. Cord: 3-vessel cord has orthotopic insertion. Bladder: Normal in size. Extremities: All 4 extremities identified. IMPRESSION: Single live intrauterine with estimated weight at the 56th percentile. Symmetric growth and normal anatomy. Composite gestational age is in good agreement with the expected gestational age. Closed cervix and normal amniotic fluid volume. We strive to produce accurate, complete, and clear reports of imaging services. To assist us in improving patient care, this report was composed using standard report templates and voice recognition software. Therefore, it may contain abnormal punctuation, insertions and/or omissions. Occasional wrong-word or sound-alike substitutions may occur. Though we review the report and make efforts to correct it, we do recommend that the report be read carefully in proper context to recognize any text inaccuracies. Dictated by: Dorothy Suresh M.D. on 03/06/2025 at 15:59 Approved by: Dorothy Suresh M.D. on 03/06/2025 at 16:03
--- NOTE | 2025-03-06 07:05 | DI.US.S_ITS ---
PROCEDURE: US THYROID INDICATIONS: evaluate thyroid nodules seen on carotid US TECHNIQUE: Real-time scanning was performed of the thyroid gland, with image documentation. Thirty-two images and 2 cine series. COMPARISON: None. FINDINGS: Thyroid: Right lobe measures 6.4 x 3.9 x 3.5 cm. Left lobe measures 8.7 x 3.6 x 2.9 cm. Isthmus is 1.0 cm thick. Echotexture is markedly heterogeneous. Nodule number: 1 Location: Right thyroid lobe middle 1/3 Size: 2.1 x 2.1 x 1.6 cm. Composition: Mixed cystic and solid Echogenicity: Anechoic Shape: wider than tall. Margins: Ill-defined Echogenic foci: None Total points: 1 ACR TI-RADS category: 2 Nodule number: 2 Location: Right thyroid lobe inferiorly Size: 2.2 x 1.7 x 1.7 cm. Composition: Solid Echogenicity: Isoechoic Shape: wider than tall. Margins: Smooth Echogenic foci: None Total points: 3 ACR TI-RADS category: 3 Nodule number: 3 Location: Left thyroid lobe superiorly Size: 2.4 x 2.3 x 2.0 cm. Composition: Solid Echogenicity: Isoechoic Shape: wider than tall. Margins: Smooth Echogenic foci: None Total points: 3 ACR TI-RADS category: 3 Nodule number: 4 Location: Left thyroid lobe middle 1/3 Size: 1.8 x 1.7 x 1.6 cm. Composition: Solid Echogenicity: Isoechoic Shape: wider than tall. Margins: Smooth Echogenic foci: None Total points: 3 ACR TI-RADS category: 3 IMPRESSION: Multinodular thyroid as discussed above. No nodules greater than 2.5 cm. Follow-up suggested. ACR TI-RADS definitions and recommendations: TI-RADS 1 (benign): 0 points. FNA not needed. TI-RADS 2 (not suspicious): 2 points. FNA not needed. TI-RADS 3: 3 points. * FNA if 2.5 cm or larger, follow up if 1.5 cm or larger (at 1, 3, and 5 years). TI-RADS 4: 4-6 points. * FNA if 1.5 cm or larger, follow up if 1 cm or larger (at 1, 2, 3, and 5 years). TI-RADS 5: 7 points or more. * FNA if 1 cm or larger, follow up if 0.5 cm or larger (every year for 5 years). Dictated by: Sadi Bowser M.D. on 03/06/2025 at 11:51 Approved by: Sadi Bowser M.D. on 03/06/2025 at 12:19
== END ==
LOC: US 07:04
PROVIDERS: PCP Student in an Organized Health Care Education/Training Program; Referring Provider Student in an Organized Health Care Education/Training Program; Visit Provider Student in an Organized Health Care Education/Training Program
DX: Z34.82 Encounter for supervision of other normal pregnancy, second trimester (principal); E04.2 Nontoxic multinodular goiter; Z3A.22 22 weeks gestation of pregnancy
CPT/HCPCS: 76536; 76811

== ENCOUNTER → 2025-06-06 10:21 | Outpatient (CLI) | payer OTHER, SELFPAY ==
[2025-06-07 11:36] LABS: Strep Grp B PCR NEG for Grp B Strep
== END ==
PROVIDERS: PCP Student in an Organized Health Care Education/Training Program; Visit Provider Student in an Organized Health Care Education/Training Program
DX: Z36.85 Encounter for antenatal screening for Streptococcus B (principal)
CPT/HCPCS: 87653

== ENCOUNTER → 2025-08-03 08:29 | Outpatient (CLI) | payer OTHER, SELFPAY ==
[2025-08-03 09:11] LABS: Hematocrit 37.4 % (36-46); Hemoglobin 12.5 g/dL (12.0-16.0)
[2025-08-03 10:07] LABS: TSH w/ Reflex to FT4 < 0.02 uIU/mL (0.47-4.68)
[2025-08-03 12:08] LABS: Free T4, Direct Thyroxine 1.25 ng/dL (0.78-2.19)
== END ==
PROVIDERS: Student in an Organized Health Care Education/Training Program; PCP Student in an Organized Health Care Education/Training Program; Referring Provider Student in an Organized Health Care Education/Training Program; Visit Provider Student in an Organized Health Care Education/Training Program
DX: Z13.0 Encounter for screening for diseases of the blood and blood-forming organs and certain disorders involving the immune mechanism (principal); E04.1 Nontoxic single thyroid nodule
CPT/HCPCS: 36415; 84439; 84443; 85014; 85018